=== PATIENT | male | born 1960 | race Caucasian/White ===

== ENCOUNTER 2023-04-24 09:32 | Outpatient (CLI) | payer OTHER ==
--- NOTE | 2023-04-24 12:04 | XRAY Report ---
PROCEDURE: Knee 3V LT INDICATIONS: FELL ON KNEE TECHNIQUE: 3 views of the knee(s) were acquired. COMPARISON: None. FINDINGS: Bones: No fractures or dislocations. Decreased osseous mineralization. No suspicious bony lesions. Soft tissues: Small knee joint effusion. No suspicious soft tissue calcifications or masses. IMPRESSION: No acute bony abnormality. If pain persists with conservative management, consider repeat x-ray in 10 -14 days or cross-sectional imaging. Reviewed by: Geovanni Wen MD on 04/24/2023 12:02 PM PST Approved by: Geovanni Wen MD on 04/24/2023 12:02 PM [facility] Station ID: [id number]
== END 2023-04-24 09:33 | disposition home or self-care (01) ==
LOC: DI 09:32
PROVIDERS: ATTEND Registered Nurse
DX: S89.92XA Unspecified injury of left lower leg, initial encounter (principal)